=== PATIENT | female | born 1960 | race Caucasian/White ===

== ENCOUNTER 2017-03-19 06:55 | Outpatient (CLI) | payer OTHER | END 2017-03-19 06:56 | disposition home or self-care (01) | LOC: BICMAMMO 06:55 | PROVIDERS: ATTEND Obstetrics & Gynecology | DX: Z13.820 Encounter for screening for osteoporosis (principal); N63.20 Unspecified lump in the left breast, unspecified quadrant; M85.852 Other specified disorders of bone density and structure, left thigh | CPT/HCPCS: 77080; G0206-LT; G0279 ==

== ENCOUNTER 2018-03-24 11:14 | Outpatient (CLI) | payer OTHER | END 2018-03-24 11:15 | disposition home or self-care (01) | LOC: BICMAMMO 11:14 | PROVIDERS: ATTEND Obstetrics & Gynecology | DX: Z12.31 Encounter for screening mammogram for malignant neoplasm of breast (principal) | CPT/HCPCS: 77063; 77067 ==

== ENCOUNTER 2019-03-17 14:30 | Outpatient (CLI) | payer OTHER | END 2019-03-17 14:31 | disposition home or self-care (01) | LOC: SLEEPLAB 14:30 | PROVIDERS: ATTEND Otolaryngology Otolaryngic Allergy | DX: G47.9 Sleep disorder, unspecified (principal); K21.9 Gastro-esophageal reflux disease without esophagitis | CPT/HCPCS: 95806 ==

== ENCOUNTER 2019-04-07 15:09 | Outpatient (CLI) | payer OTHER ==
--- NOTE | 2019-04-07 16:20 | MMO ---
Bilateral MAMMO Bilat Screen [facility]. CLINICAL HISTORY: Patient is 58 years old and is seen for screening. The patient has no family history of breast cancer. The patient has no personal history of cancer. VIEWS: The views performed were: bilateral craniocaudal with tomosynthesis and bilateral mediolateral oblique with tomosynthesis. FILMS COMPARED: The present examination has been compared to prior imaging studies performed at [facility] on 03/19/2017 and 03/24/2018, and at [facility] on 12/16/2015 and 12/17/2016. This study has been interpreted with the assistance of computer-aided detection. MAMMOGRAM FINDINGS: There are scattered fibroglandular densities. There are no suspicious masses, suspicious calcifications, or new areas of architectural distortion. IMPRESSION: THERE IS NO MAMMOGRAPHIC EVIDENCE OF MALIGNANCY. A ROUTINE FOLLOW-UP MAMMOGRAM IN 1 YEAR IS RECOMMENDED. THE RESULTS OF THIS EXAM WERE SENT TO THE PATIENT. ACR BI-RADS Category 1 - Negative MAMMOGRAPHY NOTE: 1. A negative mammogram report should not delay a biopsy if a dominant of clinically suspicious mass is present. 2. Approximately 10% to 15% of breast cancers are not detected by mammography. 3. Adenosis and dense breasts may obscure an underlying neoplasm. Reported by: RUFINO NICOLAS MD Electonically Signed: [id number]
== END 2019-04-07 15:10 | disposition home or self-care (01) ==
LOC: BICMAMMO 15:09
PROVIDERS: ATTEND Obstetrics & Gynecology
DX: Z12.31 Encounter for screening mammogram for malignant neoplasm of breast (principal)
CPT/HCPCS: 77063; 77067